=== PATIENT | male | born 1965 | race Caucasian/White ===

== ENCOUNTER 2021-08-09 13:01 | Emergency (ER) | payer BC ==
[~2021-08-09] VITALS: Ht 187.9 cm; Wt 63.5 kg
[~2021-08-09 13:01] MED LIST: ANAPROX DS550 MG PO; CLEOCIN HCL300 MG PO; VICODIN ES 7501 TAB PO; ZITHROMAX Z PA250 MG PO
[2021-08-09 14:11] LABS: BASO % 0.3 % (0.0-1.0); EOS % 0.4 % (1.0-4.0); HEMATOCRIT 38.2 % (42.0-52.0); LYMPH # 0.4 10*3/uL (1.3-4.4); MEAN CELL VOLUME 85.1 fl (80.0-94.0); MEAN CORPUSCULAR HGB 28.7 pg (27.0-31.0); MEAN CORPUSCULAR HGB CONC 33.8 g/dl (33.0-37.0); MEAN PLATELET VOLUME 11.4 fl (9.6-12.3); MONO # 1.1 10*3/uL (0.1-1.0); MONO % 11.8 % (3.0-9.0); NEUT # 7.5 10*3/uL (2.3-7.9); NEUT % 83.1 % (47.0-73.0); PLATELET COUNT AUTOMATED 141 10*3/uL (130-400); RED BLOOD COUNT 4.49 10*6/uL (4.50-5.90); RED CELL DISTRI WIDTH 13.2 % (0-14.5)
[2021-08-09 14:53] LABS: CREATININE 1.66 mg/dL (0.70-1.30); POTASSIUM 3.6 mmol/L (3.5-5.1); TOTAL PROTEIN 6.6 gm/dL (6.4-8.2)
[2021-08-09 15:25] LABS: BILIRUBIN 1+ (Negative); BLOOD 2+ (Negative); CLARITY Cloudy (Clear); COLOR Dark Yellow (Yellow); GLUCOSE Negative (Negative); KETONE 1+ (Negative); LEUKO ESTERASE Trace (Negative); NITRITE Negative (Negative); SPECIFIC GRAVITY >= 1.030 (1.001-1.030)
[2021-08-09] MEDS ORDERED: ZOFRAN4 MG PO (15:51)
[2021-08-09 16:08] LABS: BACTERIA 2+; RBC 16-20 rbc/hpf (0-2)
== END 2021-08-09 16:11 | disposition home or self-care (01) ==
LOC: ED 13:01
PROVIDERS: Nurse Practitioner Family
DX: B34.9 Viral infection, unspecified (principal); Z20.822 Contact with and (suspected) exposure to COVID-19; Z88.0 Allergy status to penicillin

== ENCOUNTER → 2024-03-03 | Outpatient (CLI) | payer BC ==
[~2024-03-03] MED LIST changes: +AMLODIPINE BESY10 MG PO; +LEVOFLOXACIN750 M2 PO; +METRONIDAZOLE500 M1 PO; +VITAMIN D3125 MC1 PO; +ZOFRAN4 MG PO; +ZYVOX600 MG PO
== END | disposition home or self-care (01) ==
LOC: LAB 17:01
PROVIDERS: ATTEND Family Medicine
DX: R53.83 Other fatigue (principal); R79.89 Other specified abnormal findings of blood chemistry; E78.5 Hyperlipidemia, unspecified

== ENCOUNTER → 2025-05-29 | Outpatient (CLI) | payer OTHER | END | disposition home or self-care (01) | LOC: LAB 16:12 | PROVIDERS: ATTEND Family Medicine | DX: E11.9 Type 2 diabetes mellitus without complications (principal); R79.89 Other specified abnormal findings of blood chemistry; R53.83 Other fatigue ==